=== PATIENT | female | born 1985 | race Caucasian/White ===

== ENCOUNTER 2020-06-25 02:42 | Emergency (ER) | payer SELFPAY ==
--- NOTE | 2020-06-25 02:44 | W.ED.GENAD ---
Discharge Plan Disposition Patient Disposition: HOME Condition: Good Discharge Details Clinical Impression: Fatigue, Generalized weakness ED Provider: Phil Dahl Discharge Instructions Instructions: Weakness (ED), Fatigue (ED) Additional Instructions: Your laboratory studies tonight for the most part are fine. Specifically kidney function and electrolytes are normal. Thyroid function and blood count are normal. Your white blood cell count is a little low. Your AST and ALT which are liver enzymes are elevated. Both of these abnormalities are likely related to your alcohol consumption. We will refer you to care management to help establish primary care for follow-up and further evaluation. Referrals: Care Management [Provider Group] Medical Decision Making Patient with complaint of generalized weakness, fatigue, anorexia with intermittent GI symptoms and decreased oral intake. Does admit to drinking on a daily basis. Denies fever, pain, shortness of breath, neurologic changes other than tingling in her feet at times. She and her sister are concerned for renal failure. This would not be top on my last. There is no mental status changes. Nothing to suggest viral illness. Thyroid feels normal. Will obtain urine and basic laboratory studies for screening basis. However, I have told patient that it is likely she will need follow-up with her primary care physician for further evaluation and management. Patient's laboratory studies are really for the most part unremarkable. Her white count is a little low. Her AST and ALT elevated to the 200 range. Most likely due to her alcohol consumption. TSH, kidney function, electrolytes, hemoglobin and urinalysis are normal. test negative. Urine drug screen negative. Alcohol level 45. I have discussed laboratory results with the patient. My opinion is that the lab abnormalities present are not causing her symptoms but are likely related to her alcohol consumption. We will refer her to care management for referral to primary care. Lab Data Lab results reviewed: Yes I reviewed the patient's lab results. HPI General Mode of arrival: ambulatory. Date/Time Provider Initiated Documentation: 06/25/20 02:44. Limitations to Documentation: no limitations. Information obtained by: patient and RN notes reviewed. HPI Narrative: Patient presents to ED with complaint of extreme fatigue, generalized weakness, loss of appetite, dizziness for the last week or so. She has intermittent nausea with occasional vomiting and diarrhea. She has no abdominal pain. She has no chest pain, cough, shortness of breath. She has had no loss of taste or smell. She has had no fever. She has no headache. Reports that when she stands up quickly she seems to feel dizzy and sees spots before her eyes but has never passed out. She has no leg pain or leg swelling. Occasionally feels tingling in her feet. Reports decreased urine output but is still urinating. After talking to her sister who is a nurse they were concerned that maybe she was having kidney problems with electrolyte problems and came in for evaluation. Patient does admit to drinking approximately 1-1/2 bottles of wine a day. She denies drug use other than occasional Adderall when she has to work. LMP was 1 week ago. Related Data Allergies Allergy/AdvReac Type Severity Reaction Status Date / Time No Known Allergies Allergy Unverified 06/25/20 02:57 Review of Systems Constitutional Constitutional: Reports fatigue, Denies fever(s), Denies headache(s), Reports lethargy, Denies night sweats, Reports poor appetite and Reports weakness ENT Ears, Nose, Mouth, and Throat: Denies otalgia, Denies headache(s), Denies neck pain and Denies sore throat Cardiovascular Cardiovascular: Denies chest pain, Denies syncope, Denies leg edema and Denies dyspnea Respiratory Respiratory: Denies cough and Denies dyspnea Gastrointestinal Gastrointestinal: Denies abdominal pain, Reports loose stools, Reports nausea and Reports vomiting Genitourinary Genitourinary: Denies hematuria, Denies difficulty voiding and Denies pelvic pain Musculoskeletal Musculoskeletal: Denies back pain, Denies muscle cramps, Denies neck pain and Reports tingling Integumentary/Breasts Skin/Breast: Denies rash and Denies unusual bruising Neurologic Neurologic: Denies confusion, Denies syncope, Denies headache(s), Denies localized weakness, Denies sensory deficit, Reports tingling and Reports weakness Psychiatric Psychiatric: Denies confusion Endocrine Endocrine: Reports fatigue, Denies polyphagia, Denies polydipsia and Denies polyuria [facility] Medical History HSP (Henoch Schonlein purpura) Surgical History No significant past surgical history Social History Smoking/Tobacco Use Status: Current-Occasional Tobacco Type: cigarettes Smoking risk assessment performed?: Yes Alcohol Intake: current Alcohol Intake frequency: 3 or more drinks per day Alcohol type: wine Drug use: Occasionally Substance use type: amphetamines Details: uses adderall for work, Do you feel safe at home: Yes Do you feel safe in your relationship?: Yes Exam Narrative Exam Narrative: Const: WDWN female in NAD. HEENT: NC/AT. Normal facial exam. Eyes: Normal conjunctiva and sclera. Neck: Supple. Trachea midline. Normal thyroid. Lungs: Normal respiratory effort. Lungs are clear. Cor: RRR without murmur/gallop. Good radial pulses. GI: Soft. NT/ND. No guarding or rebound. Back: No CVAT Neuro: A+O x 3. Normal speech, mentation, gait. Cranial nerves II - XII grossly intact. No gross motor or sensory deficit. Ext: No C/C/E. Skin: Warm and dry without rash.
[2020-06-25 02:49] VITALS: BP 140/95; PULSE 90; RESP 18; TEMP 36.3; O2SAT 98
[2020-06-25 03:02] VITALS: RESP 16
[2020-06-25] MEDS: Lactated Ringers 1,000 ML 1000 ML IV (03:26)
[2020-06-25 03:32] LABS: Abs Immature Grans 0.02 10^3/uL (0.0-0.06); Absolute Basophil Count 0.05 10^3/uL (0.0-0.2); Absolute Eosinophil Count 0.21 10^3/uL (0.0-0.7); Absolute Lymphocyte Count 1.04 10^3/uL (1.2-3.4); Absolute Monocyte Count 0.32 10^3/uL (0.1-0.8); Absolute Neutrophil Count 2.54 10^3/uL (1.2-6.7); Basophils % 1.2; HCT 42.5 % (36.0-46.0); HGB 14.1 g/dL (11.2-15.7); Immature Grans % 0.5; Lymphocytes % 24.9; MCH 32.5 pg (27.0-33.0); MCHC 33.2 % (32.0-36.0); MCV 97.9 fL (80-95); Monocytes % 7.7; Neutrophils % 60.7; Nucleated RBC 0 %; Platelet Count 174 10^3/uL (130-400); RBC 4.34 10^6/uL (3.93-5.22); RDW 11.3 % (11.7-14.6); RDW-SD 41.2 fL; WBC 4.18 10^3/uL (4.4-10.8)
[2020-06-25 03:45] LABS: Bilirubin Negative (Negative); Blood Negative (Negative); Clarity Clear (Clear); Glucose Negative (Negative); Ketones Negative (Negative); Leukocyte Esterase Negative (Negative); Nitrite Negative (Negative); Specific Gravity 1.015 (1.005-1.025); Urobilinogen 0.2 EU/dL (Up TO 0.2); pH 7.5 (5-8)
[2020-06-25 04:01] LABS: *AMPHETAMINES SCREEN URINE Negative (Negative); *BARBITURATES SCREEN URINE Negative (Negative); *BENZODIAZEPINES SCREEN URINE Negative (Negative); Cannabinoids THC Negative (Negative); Cocaine Screen,Urine Negative (Negative); METHADONE URINE SCREEN Negative (Negative); OPIATES URINE SCREEN Negative (Negative)
[2020-06-25 04:03] LABS: Tricyclic Antidepressants Negative (Negative)
[2020-06-25 04:13] LABS: ALT 262 U/L (14-59); AST 260 U/L (15-37); Albumin 4.4 g/dL (3.4-5.0); Alkaline Phosphatase 81 U/L (46-116); Anion Gap 7.4 mmol/L (3-11); BUN 6 mg/dL (7-18); Bilirubin, Total 0.6 mg/dL (0.2-1.0); CO2 30.6 mmol/L (21.0-32.0); CREATININE 0.78 mg/dL (0.55-1.02); Calcium 9.4 mg/dL (8.5-10.1); Chloride 98 mmol/L (98-107); ETHANOL BLOOD 44.3 mg/dL (<3); Glucose 99 mg/dL (74-106); Magnesium 1.8 mg/dL (1.8-2.4); Potassium 3.6 mmol/L (3.5-5.1); Sodium 136 mmol/L (136-145); TSH (W/Ref FT4) 2.36 uIU/mL (0.36-3.74); Total Protein 8.2 g/dL (6.4-8.2)
[2020-06-25 04:48] VITALS: BP 125/89; PULSE 82; RESP 16; O2SAT 97
--- NOTE | 2020-06-25 08:38 | NUR.NOTE ---
Referral to Care Management to establish PCPNursing Note:
--- NOTE | 2020-06-26 14:31 | PDOC.ERCMPRO ---
- If Service Date Differs Date of service: 06/26/20 Time of Service: 14:31 Care Management Progress Note Samia is seen in the ED on 06/25/20 for generalized weakness and fatigue. At the request of ED provider, ADENIKE coordinates a referral to Patricia Galan NP, on-call provider, of [facility], to assist Samia in obtaining a follow up appointment and in establishing care with a PCP. Samia is also referred to Jody Don, [facility] Specialist at [facility], for assistance with health insurance.
== END 2020-06-25 03:45 | disposition home or self-care (01) ==
PROVIDERS: Emergency Provider Emergency Medicine
DX: R53.83 Other fatigue (principal); R53.1 Weakness; R74.01 Elevation of levels of liver transaminase levels; F10.10 Alcohol abuse, uncomplicated; Y90.2 Blood alcohol level of 40-59 mg/100 ml
CPT/HCPCS: 36415; 80053; 80307; 81025; 96360; 99284; 80320; 81003; 83735; 84443; 85025; 99283